=== PATIENT | male | born 1940 | race Caucasian/White ===

== ENCOUNTER → 2021-10-26 | Outpatient (CLI) | payer BC, MEDICARE ==
[~2021-10-26] MED LIST: ASPIR 8181 MG PO; B-121000 MC1 PO; COMBIVENT RESPIM4 GM INH; COQ-10100 MG PO; ELIQUIS5 MG PO; FLONASE 0.05% N16 GM; LASIX20 MG PO; LEVAQUIN500 MG PO; LISINOPRIL20 MG PO; METFORMIN HCL500 MG PO; METOPROLOL TART25 MG PO; OCUVEL CAPSULE1 EACH PO; OZEMPIC0.25 MG/0. SC; SOTALOL80 MG PO; TYLENOL W/CODEIN1 E1 PO; VITAMIN B COMP1 EAC3 PO
[2021-10-26 11:10] LABS: BUN/CREATININE RATIO 18 (0-10)
== END ==
LOC: LAB 10:23
PROVIDERS: Internal Medicine Nephrology
DX: N18.31 Chronic kidney disease, stage 3a (principal); E87.2 Acidosis
CPT/HCPCS: 36415; 36600; 80053; 82803